=== PATIENT | female | born 1970 ===

== ENCOUNTER 2018-01-25 17:11 | Emergency (ER) | payer SELFPAY ==
[~2018-01-25] VITALS: Ht 167.6 cm; Wt 100.0 kg
[2018-01-25 17:34] VITALS: BP 139/91
[2018-01-25] MEDS ORDERED: ketorolac trometh inj. 60 MG/2 ML VIAL IM ONE (17:40)
[2018-01-25] MEDS ORDERED: GABA600T PO (18:38)
[2018-01-25] MEDS ORDERED: HYDROcodone/acetaminophen 10/325mg tab PO ONE (18:40)
== END 2018-01-25 18:56 | disposition home or self-care (01) ==
LOC: ER 17:12
DX: G89.29 Other chronic pain (principal); M79.604 Pain in right leg; M79.605 Pain in left leg; E03.9 Hypothyroidism, unspecified; Z88.0 Allergy status to penicillin
CPT/HCPCS: 96372; 99283; J1885